=== PATIENT | male | born 1990 | race Caucasian/White ===

== ENCOUNTER 2022-02-06 22:57 | Emergency (ER) | payer BC ==
[2022-02-06 23:09] VITALS: BP 133/86; PULSE 58; TEMP 97.6; BMI 25.1
[2022-02-07] MEDS ORDERED: IBUPROFEN 600 MG TABLET (FP) PO ONE ×2 (00:46→01:22)
[2022-02-07 01:31] LABS: BASO % 0.5 % (0-2.0); EOS % 6.3 % (0-4.5); HEMATOCRIT 42.3 % (35.4-49); HEMOGLOBIN 14.7 GM/dL (11.7-16.9); LYMPH % 44.7 % (8-40); MCH 29.8 pg (25.7-33.7); MCHC 34.9 g/dl (32.0-35.9); MEAN CELL VOLUME 85.5 fl (80-96); MEAN PLT VOLUME 8.5 fl (7.5-11.1); MONO % 7.2 % (3.8-10.2); NEUT % 41.3 % (42.8-82.8); PLATELET COUNT 233 10^3/uL (134-434); RBC 4.94 M/mm3 (4.00-5.60); RDW 12.8 % (11.9-15.9); WHITE BLOOD COUNT 5.7 K/mm3 (4.0-10.0)
[2022-02-07 01:50] LABS: ALBUMIN 4.1 g/dl (3.4-5.0); BLOOD UREA NITROGEN 18.8 mg/dL (7-18); CALCIUM 8.7 mg/dL (8.5-10.1)
[2022-02-07 01:53] LABS: CREATININE 1.3 mg/dL (0.55-1.3); INR 1.21 (0.83-1.09); PROTHROMBIN TIME (PATIENT) 13.9 SEC (9.7-13.0)
[2022-02-07 01:54] LABS: BILIRUBIN,TOTAL 0.4 mg/dL (0.2-1)
[2022-02-07 01:55] LABS: TOT PROT 7.5 g/dl (6.4-8.2)
[2022-02-07 01:56] LABS: ACTIVATED PTT 35.7 SECONDS (25.2-36.5)
== END 2022-02-07 03:39 | disposition home or self-care (01) ==
LOC: JERFT 22:57 → JER 22:57
DX: R07.89 Other chest pain (principal)
CPT/HCPCS: 36415; 71045-TC-FY; 73030-TC-LT-FY; 73060-TC-LT-FY; 73090-TC-LT-FY; 80053; 84484; 85025; 85610; 85730; 93005; 93010; 99285-25